=== PATIENT | female | born 1945 | race Hispanic/Latino ===

== ENCOUNTER 2017-03-16 04:26 | Inpatient (IN) | payer OTHER, MEDICARE ==
[~2017-03-16] VITALS: Ht 157.5 cm; Wt 64.0 kg
[~2017-03-16 04:26] MED LIST: ASPIR 8181 MG PO; ATORVASTATIN CA10 MG PO; FERROUS SULFAT325 M1 PO; FLAG500 PO; KEFLEX 250MG C250 MG PO; LANTUS100 U/ML INJ; LANTUS100 U/ML SC; LASIX20 MG PO; MELOXICAM7.5 M1; MIRALAX17 GM PO; NOVAPLUS ZOSYN1 PD1 IV; NOVOLOG100 U/ML SC; PERCOCET 325 MG1 TA2 PO; PRILOSEC 20MG C20 MG PO; SENOKOT NATURA8.6 MG PO; UNASYN 3000MG3000 MG IV
--- NOTE | 2017-03-16 09:44 | Operative Report ---
Operative/Inv Procedure Report Surgery Date: 03/16/17 Name of Procedure: 1 open incision and drainage deep to the deep fascia with exposure of the flexor tendon and tendon sheath multiple sites left foot 2 bone biopsy left cuboid 3 intraoperative administration of ankle block anesthesia 4 excisional debridement Pre-Operative Diagnosis: 1 open necrotic wound left foot 2 osteomyelitis left foot 3 diabetic peripheral neuropathy 4 chronic nonhealing ulceration left foot Post-Operative Diagnosis: The same Estimated Blood Loss: less than 50ml Surgeon/Account Development Associate: BRINDA RODRIGUEZ DPM Anesthesia: moderate sedation, block Operative/Procedure Note Note: After obtaining informed consent the patient was brought to the operating room and placed on the operating table in supine position. The patient isn't securely fastened to the operating table using safety belt. After administration of IV sedation, 10 mL of 0.5% Marcaine plain was infiltrated about the patient's left ankle. The left foot and ankle within scrubbed prepped and draped in usual aseptic manner. Attention directed to the lateral aspect of the left ankle, where a 4 cm x 6 cm full-thickness Rivero grade 3 ulceration was identified. A 15 blade was utilized sharply revised skin margins. Dissection was then carried down deep to the deep fascia with exposure of the flexor tendon and tendon sheath multiple sites, both proximally and distally. All necrotic nonviable infected tissue sharply evacuated from the wound bed. The dissection was then carried down to the periosteum overlying the lateral aspect of the cuboid this was incised reflected. An osteotome and mallet was utilized to resect the inferior and lateral margin of the exposed bone. Specimen was harvested for both microbiologic and pathologic inspection. Nipple was then irrigated with 3 L of normal sterile saline infused with 50,000 units of bacitracin. Following this, the foot was redraped dressed and the surgeon's top gloves were changed clean gloves. Any bleeding vessels identified were cauterized or ligated as encountered. Nipple was then packed with iodoform and 3-0 nylon retention sutures were placed foot was then dressed with 4 x 4's Kerlix and an Jignesh wrap. The patient was noted to tolerate both procedure and anesthesia well and the patient was transported from the operating room to recovery with vital signs stable.
[2017-03-16 11:00] VITALS: BP 122/62
--- NOTE | 2017-03-16 12:24 | Cons- Medical ---
YANA NICOLE 03/16/17 1222: General Information and HPI Consulting Request Date of Consult: 03/16/17 Requested By: BRINDA RODRIGUEZ DPM Reason for Consult: DM, other medical issues. 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 She is now status post open incision and drainage to the deep fascia of the flexor tendon at multiple sites of left foot with left cuboid bone biopsy and excisional debridement done earlier today morning 03/16/2017. Medicien was consulted for Mx of DM and other medical issues. Allergies/Medications Allergies: Coded Allergies: NO KNOWN ALLERGIES (10/01/15) Home Med List: Atorvastatin Calcium (Lipitor) 40 MG TABLET 1 TAB PO DAILY hypercholesterolemia (Reported) Ferrous Sulfate (Feosol) 325 MG (65 MG IRON) TABLET 1 TAB PO DAILY anemia ( Reported) Furosemide 20 MG TABLET 1 TAB PO DAILY HF (Reported) Furosemide (Lasix) 20 MG TABLET 1 TAB PO DAILY HEART Insulin Detemir (Levemir) 100 UNIT/ML VIAL 45 UNIT SC QPM DM (Reported) Meloxicam 7.5 MG TABLET PAIN (Reported) Current Medications: Current Medications Sig/Tamiko Start time Last Medication Dose Route Stop Time Status Admin Ampicillin Sodium/ 3,000 MG Q6 03/16 1200 AC Sulbactam Sodium IV 03/17 1159 Sodium Chloride 100 ML Aspirin 81 MG DAILY 03/17 1000 AC PO Atorvastatin Calcium 10 MG 1700 03/16 1700 AC PO Ferrous Sulfate 325 MG DAILY 03/17 1000 AC PO Furosemide 20 MG DAILY 03/17 1000 AC PO Heparin Sodium 5,000 UNIT Q8 03/17 0600 AC (Porcine) SC Insulin Aspart 0 TIDAC 03/16 1200 AC SC Insulin Detemir 30 UNITS QPM 03/16 2200 AC SC Oxycodone/ 1 TAB Q4P PRN 03/16 1130 AC Acetaminophen PO Review of Systems Review of Systems Constitutional: Denies: chills, diaphoresis, fever, malaise, weakness, unexplained weight loss. EENTM: Denies: blurred vision, double vision, visual changes. Cardiovascular: Denies: chest pain, edema, orthopena, palpitations. Respiratory: Denies: cough, hemoptysis, orthopnea, short of breath. GI: Denies: abdominal pain, bloating, constipation, diarrhea. Genitourinary: Reports: no symptoms. Musculoskeletal: Reports: joint pain, joint swelling. Skin: Reports: no symptoms. Neurological/Psychological: Reports: no symptoms. Hematologic/Endocrine: Reports: no symptoms. Immunologic/Allergic: Reports: no symptoms. All Other Systems: Reviewed and Negative Past History Medical History Neurological: NONE EENT: NONE Cardiovascular: hyperlipidemia Respiratory: NONE Gastrointestinal: NONE Hepatic: NONE Renal: NONE Musculoskeletal: NONE Psychiatric: NONE Endocrine: diabetes Blood Disorders: NONE Cancer(s): NONE RN CVOR/Reproductive: NONE Surgical History Surgical History: Amputations: right great toe, left 3rd toe Psychosocial History Who Do You Live With? Lives with family members Services at Home: Home Health Aide Primary Language: Ethiopian Functional Ability ADLs Independent: dressing, eating, toileting, bathing. Ambulation: cane IADLs Independent: shopping, housework, finances, food prep, telephone, transportation , medication admin. Exam & Diagnostic Data Last 24 Hrs of Vital Signs/I&O stable Physical Exam General Appearance: well developed/nourished, no apparent distress Head: atraumatic, normal appearance Eyes: Bilateral: PERRL, EOMI. Ears, Nose, Throat: normal pharynx Neck: normal inspection, supple, full range of motion Respiratory: normal breath sounds, chest non-tender Cardiovascular: regular rate/rhythm Peripheral Pulses: 2+ radial (R), 2+ radial (L) Gastrointestinal: normal bowel sounds, soft, non-tender Extremities: calf tenderness, dressing present around the left ankle. Neurologic/Psych: no motor/sensory deficits Last 24 Hrs of Labs/Barry: stable Assessment/Plan Assessment/Plan This is a 70-year-old Ethiopian-speaking female with history of insulin-dependent diabetes mellitus, stage II diastolic heart failure on Lasix 10mg at home, history of chronic osteomyelitis, peripheral vascular disease, rule nonhealing foot ulcer status post previous screening graft, with the way to out patient management with suspicion for osteomyelitis status post debridement and bone biopsy 03/16/2017. Problem list along with assessment and plan #1 diabetes mellitus type 2 mellitus * Patient is a known case of diabetes mellitus. * HbA1c 7.7 in 01/18/2015 * Fingerstick noted to be 184. * patient is on 45 units levemir at home, continue current 30 units while in hospital Qpm. * ct current sliding scale - 151-200 - 2 units, 201-254 - 4 units, 251-300 -6 units, 301-350 -8 units, 351-400 -10 units, more than 400 - 12 units and call M.D. * Consistent carbohydrate diet. #2 diastolic congestive heart failure. * NO evidence of edema/crackles. * Continue furosemide 20 mg at home dosage. #3 GERD * Continue home medication of PPI. #4 hyperlipidemia. * Continue atorvastatin 10 mg daily. # 5 chronic anemia. * Continue Feosol 325 mg by mouth daily. #6 suspected osteomyeltis s/p bone bx * ct iv unasyn pendign cultures. * ct to follow Cx * Pain mx. DVT prophylaxis all the time. Pain mx. Problem List: 1. Osteomyelitis 2. Diabetes 3. Anemia 4. Peripheral vascular disease in diabetes mellitus 5. Ulcer of toe of left foot 6. DVT prophylaxis 7. Full code status 8. Other acute osteomyelitis, left ankle and foot Copies To: BRINDA RODRIGUEZ DPM Consult Acknowledgment - Thank you for your consult request. MARK DOVER,[facility] 03/16/17 3114: Assessment/Plan Consult Acknowledgment - Thank you for your consult request. Attending MD Review Statement Attending Statement Attending MD Statement: examined this patient, discuss w/resident/PA/BOILERMAKER FITTER, agreed w/resident/PA/BOILERMAKER FITTER, reviewed EMR data (avail)
--- NOTE | 2017-03-16 13:52 | NUR ---
1100-PT ARRIVED TO FLOOR FROM PACU. REPORT REC'D FROM [employer] ASSOCIATE DIRECTOR FINANCIAL AID. PT HAD L FOOT I&D AND BONE BIOPSY. VSS UPON ARRIVING TO FLOOR. DRESSING TO L FOOT C,D,I. FOOT ELEVATED ON PILLOW. PT INCONTINENT UPON ARRIVING TO FLOOR. PT CLEANED AND BEDSIDE COMMODE PLACED. PT DENIES PAIN AT THIS TIME.
[2017-03-16] MEDS ORDERED: LIPITOR40 M1 PO (14:00)
[2017-03-16] MEDS ORDERED: FUROSEMIDE20 M1 PO (14:00)
[2017-03-16] MEDS ORDERED: FEOSOL325 MG PO (14:01)
[2017-03-16] MEDS ORDERED: LEVEMIR100 UNIT/1 SC (14:02)
[2017-03-16 22:18] VITALS: BP 110/70
--- NOTE | 2017-03-17 05:20 | NUR ---
NURSING NOTE: PATIENT REPORTED SHE "FEELS LIKE HER SUGAR IS LOW." MST CHECKED FSBS, PT <50. APPLE JUICE & CRACKERS GIVEN TO PATIENT AND MD TEJADA MADE AWARE; IV DEXTROSE GIVEN PER MD ORDERS. WILL CONTINUE TO MONITOR.
[2017-03-17 06:26] VITALS: BP 110/64
--- NOTE | 2017-03-17 09:44 | PN- Medicine Consult ---
See Addendum Assessment/Plan Assessment/Plan Assessment: This is a 70-year-old Uzbek-speaking female with history of insulin-dependent diabetes mellitus, stage II diastolic heart failure on Lasix 10mg at home, history of chronic osteomyelitis, peripheral vascular disease, rule nonhealing foot ulcer status post previous screening graft, with the way to out patient management with suspicion for osteomyelitis status post debridement and bone biopsy 03/16/2017. Plan: Problem list along with assessment and plan #1 diabetes mellitus type 2 mellitus * Patient is a known case of diabetes mellitus. * HbA1c 7.7 in 01/18/2015 * Fingerstick noted to be 184. * patient is on 45 units levemir at home, was continue 30 units while in hospital Qpm. * As per her body weight, her requirement of insulin as per 1.2 units per KG counts up to 24, it was noted that she was hypoglycemic early in the morning less than 50 therefore we will reduce the Levemir by 20% and will give her 24 units total in 2 divided doses 12 units in the a.m. and 12 units in the p.m. * ct current sliding scale - 151-200 - 2 units, 201-254 - 4 units, 251-300 -6 units, 301-350 -8 units, 351-400 -10 units, more than 400 - 12 units and call M.D. * Consistent carbohydrate diet. #2 diastolic congestive heart failure. * NO evidence of edema/crackles. * Continue furosemide 20 mg at home dosage. #3 GERD * Continue home medication of PPI. #4 hyperlipidemia. * Continue atorvastatin 10 mg daily. # 5 chronic anemia. * Continue Feosol 325 mg by mouth daily. #6 suspected osteomyeltis s/p bone bx * ct iv unasyn pendign cultures. * ct to follow Cx * Pain mx. DVT prophylaxis all the time. Pain mx. Problem List: 1. Osteomyelitis 2. Diabetes Subjective Subjective: I have seen and examined the patient today morning, she was resting comfortably on the bed, did not have any new problems pain with that than one hypoglycemic episode early in the morning. She does not have any nausea, vomiting any fever, her vitals are stable, she is status post a primary and and is continued on Unasyn. Review of Systems Constitutional: Reports: see HPI. Objective Last 24 Hrs of Vital Signs/I&O Vital Signs Date Time Temp Pulse Resp B/P B/P Pulse O2 O2 Flow FiO2 Mean Ox Delivery Rate 03/17 0626 97.8 74 20 110/64 93 Room Air 03/16 2218 98.7 82 20 110/70 92 05/ 1100 97.5 80 18 122/62 92 Room Air Intake & Output 03/17 1600 03/17 0800 03/17 0000 Intake Total 1060 400 Output Total Balance 1060 400 Intake, IV 340 Intake, Oral 720 400 Number 0 Bowel Movements Current Medications: Current Medications Sig/Tamiko Start time Last Medication Dose Route Stop Time Status Admin Ampicillin Sodium/ 3,000 MG Q6 03/16 1200 AC 03/17 Sulbactam Sodium IV 03/17 1159 0511 Sodium Chloride 100 ML Aspirin 81 MG DAILY 03/17 1000 AC PO Atorvastatin Calcium 10 MG 1700 / 1700 AC 03/16 PO 1723 Dextrose 25 GM ONCE ONE 03/17 0515 DC 03/17 IV 03/17 0516 0503 Ferrous Sulfate 325 MG DAILY 03/17 1000 AC PO Furosemide 20 MG DAILY 03/17 1000 AC PO Guaifenesin 10 ML Q6P PRN 03/16 1715 AC 05/ PO 1723 Heparin Sodium 5,000 UNIT Q8 03/17 0600 AC 03/17 (Porcine) SC 0512 Insulin Aspart 0 TIDAC 03/16 1200 AC 03/16 SC 1723 Insulin Detemir 30 UNITS QPM / 2200 AC 03/16 SC 2111 Oxycodone/ 1 TAB Q4P PRN 03/16 1130 AC Acetaminophen PO Patient Medication 1 ED .STK-MED ONE 03/16 1415 DC Teaching ED 03/16 1416 Results Last 24 Hrs Lab/Barry Results: ..
[2017-03-17 15:18] VITALS: BP 110/60
--- NOTE | 2017-03-17 17:26 | PN- Podiatry ---
Subjective Subjective: Patient seen at bedside and resting comfortably. No acute complaints. Patient afebrile. Objective Vital Signs and I&Os Vital Signs Date Time Temp Pulse Resp B/P B/P Pulse O2 O2 Flow FiO2 Mean Ox Delivery Rate 03/17 1518 97.6 86 20 110/60 91 03/17 0800 Room Air 03/17 06 97.8 74 20 110/64 93 Room Air 03/16 2218 98.7 82 20 110/70 92 Intake & Output 03/17 1600 03/17 0000 03/16 1600 03/16 0000 Intake Total 480 1060 400 730 Output Total 500 Balance 480 1060 400 230 Intake, IV 340 130 Intake, Oral 480 720 400 600 Number 0 0 Bowel Movements Output, Urine 500 Patient 142 lb Weight Physical Exam: Dressing left foot clean dry and intact. No strikethrough identified. No pain with deep palpation bilateral lower extremity's. Assessment/Plan Assessment/Plan Left foot osteomyelitis, status post I&D. Follow-up cultures. Patient to the OR for revision and closure. PICC line placement pending pathology results. Core Measures/Miscellaneous Venous Thromboembolism VTE Risk Factors: Age > 40, Immobility, paresis, Surgery VTE Contraindications: No Contraindications VTE Diagnosis: No Beta Gabriel Is Beta Gabriel a Home Med? No Antibiotics Is Patient on Antibiotics? Yes
[2017-03-17 22:14] VITALS: BP 144/78
[2017-03-18 07:17] VITALS: BP 106/50
--- NOTE | 2017-03-18 08:10 | PN- Medicine Consult ---
YANA NICOLE 03/18/17 0810: Assessment/Plan Assessment/Plan Assessment: This is a 70-year-old Citizen Of [place]-speaking female with history of insulin-dependent diabetes mellitus, stage II diastolic heart failure on Lasix 10mg at home, history of chronic osteomyelitis, peripheral vascular disease, rule nonhealing foot ulcer status post previous screening graft, with the way to out patient management with suspicion for osteomyelitis status post debridement and bone biopsy 03/16/2017 ot go for repeat OR revision today. Plan: Problem list along with assessment and plan #1 diabetes mellitus type 2 mellitus * Patient is a known case of diabetes mellitus. * HbA1c 7.7 in 01/18/2015 * Fingerstick noted to be 184. * Ct Levemir 24 units total in 2 divided doses 12 units in the a.m. and 12 units in the p.m. * ct current sliding scale - 151-200 - 2 units, 201-254 - 4 units, 251-300 -6 units, 301-350 -8 units, 351-400 -10 units, more than 400 - 12 units with added bedtime scale * Consistent carbohydrate diet. #2 Diastolic congestive heart failure. * NO evidence of edema/crackles. * Continue furosemide 20 mg at home dosage. #3 GERD * Continue home medication of PPI. #4 Hyperlipidemia. * Continue atorvastatin 10 mg daily. # 5 Chronic anemia. * Continue Feosol 325 mg by mouth daily. #6 Suspected osteomyeltis s/p bone bx * Prelim cultures show gram positive cocci, snesitivities pending * ct iv unasyn pendign cultures. * ct to follow Cx * Pain mx. DVT prophylaxis all the time. Pain mx. Problem List: 1. Diabetes 2. Osteomyelitis Subjective Subjective: seen and examiend the patient today tanya, patient doing fine, stable, no new complaints. Review of Systems Constitutional: Reports: see HPI. Objective Last 24 Hrs of Vital Signs/I&O Vital Signs Date Time Temp Pulse Resp B/P B/P Pulse O2 O2 Flow FiO2 Mean Ox Delivery Rate 03/18 0717 97.8 70 20 106/50 92 Room Air 03/17 2214 98.4 80 20 144/78 93 Room Air 03/17 1518 97.6 86 20 110/60 91 Intake & Output 03/18 1600 03/18 0800 03/18 0000 Intake Total 150 250 Output Total 400 Balance -250 250 Intake, IV 150 150 Intake, Oral 100 Output, Urine 400 Physical Exam General Appearance: well developed/nourished Head: atraumatic, normal appearance Neck: normal inspection, supple Cardiovascular: regular rate/rhythm Respiratory: normal breath sounds, chest non-tender, no respiratory distress Peripheral Pulses: 2+ radial (R), 2+ radial (L) Abdomen: normal bowel sounds, soft, non-tender Back: normal inspection Extremities: dressing, dry aroud left ankle Current Medications: Current Medications Sig/Tamiko Start time Last Medication Dose Route Stop Time Status Admin Ampicillin Sodium/ 3,000 MG Q6H / 2100 AC 03/18 Sulbactam Sodium IV 03/18 2059 1420 Sodium Chloride 100 ML Ampicillin Sodium/ 3,000 MG Q6 / 1230 DC / Sulbactam Sodium IV 03/18 1759 1447 Sodium Chloride 100 ML Aspirin 81 MG DAILY / 1000 AC 05/ PO 0814 Atorvastatin Calcium 10 MG 1700 / 1700 AC 05/03 PO 1737 Ferrous Sulfate 325 MG DAILY 03/17 1000 AC 05/04 PO 0814 Furosemide 20 MG DAILY 03/17 1000 AC 05/04 PO 0814 Guaifenesin 10 ML Q6P PRN 05/02 1715 AC 05/ PO 1336 Heparin Sodium 5,000 UNIT Q8 03/17 0600 AC 03/18 (Porcine) SC 1333 Insulin Aspart 0 TIDAC/HS / 1200 AC SC Insulin Aspart 0 TIDAC 05/ 1200 DC 05/03 SC 1304 Insulin Detemir 12 UNITS BID 03/17 1011 AC 03/18 SC 0814 Oxycodone/ 1 TAB Q4P PRN 03/16 1130 AC Acetaminophen PO Results Last 24 Hrs Lab/Barry Results: none ARPITA FLORES MD 03/19/17 1536: Attending MD Review Statement Attending Sign Off Attending Cosign Statement: I have: examined this patient, reviewed [facility] EMR data, discussd w/resident/PA/ TATTOO IDENTIFIER, agreed w/resident/PA/TATTOO IDENTIFIER.
--- NOTE | 2017-03-18 08:53 | PN- Podiatry ---
Subjective Subjective: patient at bedside with no new complaints. Patient denies nausea vomiting fever chills. Objective Vital Signs and I&Os Vital Signs Date Time Temp Pulse Resp B/P B/P Pulse O2 O2 Flow FiO2 Mean Ox Delivery Rate 03/18 717 97.8 70 20 106/50 92 Room Air 03/17 2214 98.4 80 20 144/78 93 Room Air 03/17 1518 97.6 86 20 110/60 91 Intake & Output 03/18 0803/18 0000 03/17 1600 03/17 0803/17 0000 Intake Total 150 251 316 4538 400 Output Total 400 Balance -250 503 298 1361 400 Intake, IV 150 150 340 Intake, Oral 100 480 720 400 Number 0 0 Bowel Movements Output, Urine 400 Physical Exam: Dressing left foot clean dry and intact. No pain with deep palpation bilateral lower extremity's. Bone culture negative so far. Assessment/Plan Assessment/Plan Nonhealing ulcer with left lower extremity cellulitis. Patient to the OR for revision and closure. Anticipate discharge tomorrow afternoon. Core Measures/Miscellaneous Venous Thromboembolism VTE Risk Factors: Age > 40, Immobility, paresis, Surgery VTE Contraindications: No Contraindications VTE Diagnosis: No Beta Gabriel Is Beta Gabriel a Home Med? No Antibiotics Is Patient on Antibiotics? Yes Attending MD Review Statement Attending Statement Attending MD Statement: examined this patient
[2017-03-18 14:29] VITALS: BP 100/58
[2017-03-18 22:00] VITALS: BP 120/70
[2017-03-19 06:35] VITALS: BP 100/60
--- NOTE | 2017-03-19 08:49 | PN- Medicine Consult ---
JANY NICOLEGURJIT 03/19/17 0825: Assessment/Plan Assessment/Plan Assessment: This is a 70-year-old Ivorian-speaking female with history of insulin-dependent diabetes mellitus, stage II diastolic heart failure on Lasix 10mg at home, history of chronic osteomyelitis, peripheral vascular disease, rule nonhealing foot ulcer status post previous screening graft, with suspicion for osteomyelitis status post debridement and bone biopsy 03/16/2017 ot go for repeat OR revision today. Plan: Problem list along with assessment and plan #1 diabetes mellitus type 2 mellitus * Patient is a known case of diabetes mellitus. * HbA1c 7.7 in 01/18/2015 * Patient is NPO for revision OR today. * Hold Levemir * Change novolog to novolin * Change FS to Q6 with novolin coverage. * Finish one bag of D5 * Once patient is restarted on diet, resume levemie, change FS to tidac/hs , continue consistent carbohydrate diet and CT Novolog SS - 151-200 - 2 units, 201 -254 - 4 units, 251-300 -6 units, 301-350 -8 units, 351-400 -10 units, more than 400 - 12 units with added bedtime scale #2 Diastolic congestive heart failure. * NO evidence of edema/crackles. * Continue furosemide 20 mg at home dosage. #3 GERD * Continue home medication of PPI. #4 Hyperlipidemia. * Continue atorvastatin 10 mg daily. # 5 Chronic anemia. * Continue Feosol 325 mg by mouth daily. #6 Suspected osteomyeltis s/p bone bx * Prelim cultures show gram positive cocci, snesitivities pending * ct iv unasyn pending cultures. * ct to follow Cx * Pain mx. DVT prophylaxis all the time. Pain mx. Problem List: 1. Diabetes 2. Osteomyelitis 3. Peripheral vascular disease in diabetes mellitus Subjective Subjective: npo for repeat ORtoday, couldnot have conversation as her daughter wasn't around and she doesnot speak ukrainian, but she didnot have any discomfort, pain.vitals have mostly been stable.FS noted to 188,166. Review of Systems Constitutional: Reports: see HPI. Objective Last 24 Hrs of Vital Signs/I&O Vital Signs Date Time Temp Pulse Resp B/P B/P Pulse O2 O2 Flow FiO2 Mean Ox Delivery Rate 03/19 0635 98.2 73 20 100/60 92 Room Air 05/04 2200 97.9 88 20 120/70 93 Room Air 05/04 1429 97.9 78 18 100/58 93 Intake & Output 05/05 1600 05/05 0800 05/05 0000 Intake Total 120 Output Total 500 Balance -380 Intake, Oral 120 Output, Urine 500 Physical Exam General Appearance: well developed/nourished, no apparent distress, alert, awake Head: atraumatic, normal appearance Cardiovascular: regular rate/rhythm Respiratory: normal breath sounds, chest non-tender Peripheral Pulses: 2+ radial (R), 2+ radial (L) Abdomen: normal bowel sounds, soft, non-tender Back: normal inspection Current Medications: Current Medications Sig/Tamiko Start time Last Medication Dose Route Stop Time Status Admin Ampicillin Sodium/ 3,000 MG Q6H / 2100 DC 03/18 Sulbactam Sodium IV 03/18 2059 1420 Sodium Chloride 100 ML Aspirin 81 MG DAILY 05/ 1000 AC 05/04 PO 0814 Atorvastatin Calcium 10 MG 1700 05/02 1700 AC 05/ PO 1735 Dextrose/Sodium 1,000 ML Q13H / 0600 AC 05/05 Chloride IV 0542 Ferrous Sulfate 325 MG DAILY 05/ 1000 AC 05/04 PO 0814 Furosemide 20 MG DAILY /03 1000 AC 05/ PO 0814 Guaifenesin 10 ML Q6P PRN 05/ 1715 AC 05/ PO 1336 Heparin Sodium 5,000 UNIT Q8 / 0600 AC 05/ (Porcine) SC 0541 Insulin Aspart 0 Q6 05/ 2359 DC SC Insulin Aspart 0 TIDAC/HS / 1200 DC 03/18 SC 1735 Insulin Detemir 12 UNITS BID 03/17 1011 DC 05/04 SC 0814 Insulin Human Regular 0 Q6 05/05 0052 AC 05/ SC 0542 Oxycodone/ 1 TAB Q4P PRN 02 1130 AC Acetaminophen PO Results Last 24 Hrs Lab/Barry Results: .. MARK DOVER,[facility] 03/19/17 1536: Attending MD Review Statement Attending Sign Off Attending Cosign Statement: I have: examined this patient, reviewed al EMR data, discussd w/resident/PA/ ENVIRONMENTAL AID, agreed w/resident/PA/ENVIRONMENTAL AID.
[2017-03-19 14:14] VITALS: BP 122/60
--- NOTE | 2017-03-19 18:54 | NUR ---
CALLED FROM [facility] AT THIS TIME ASKING FOR SONA TO BE BROUGHT DOWN TO OR TO COMMUNICATE WITH PT
--- NOTE | 2017-03-19 19:20 | NUR ---
PT TO OR AT 1850
--- NOTE | 2017-03-19 19:38 | Operative Report ---
Operative/Inv Procedure Report Surgery Date: 03/19/17 Name of Procedure: 1 open incision and drainage deep to the D fashion with exposure of the flexor tendon and tendon sheath multiple sites left foot 2 delayed primary closure of open surgical wound left foot 3 debridement of necrotic bone left foot 4 intraoperative administration of ankle block anesthesia 5 excisional debridement Pre-Operative Diagnosis: 1 open necrotic wound left foot 2 osteomyelitis left foot 3 diabetic peripheral neuropathy 4 peripheral arterial disease Post-Operative Diagnosis: The same Estimated Blood Loss: less than 50ml Surgeon/Nurse: BRINDA RODRIGUEZ DPM Anesthesia: moderate sedation, block Operative/Procedure Note Note: After obtaining informed consent the patient was brought to the operating room and placed on the operating table in the supine position. The patient isn't securely fastened to the operating table utilizing safety belt. After administration of IV sedation, 10 mL of 0.5% Marcaine plain was infiltrated about the patient's left ankle. The left foot and ankle within scrubbed prepped and draped in usual aseptic manner. Attention directed left foot, where a large full-thickness necrotic was identified. Revised skin margins. Dissection was then carried down deep to the D fashion with exposure of the flexor tendon and tendon sheath multiple sites, both proximally and distally. All necrotic nonviable infected tissue sharply evacuated wound bed. The central aspect of the wound was noted to have exposed bone and this was sharply debrided with an osteotome and rongeur. The open wound was then irrigated with 3 L of normal sterile saline infusion 50,000 units of bacitracin. Was redraped and the surgeon's top gloves were exchanged for clean gloves. Any bleeding vessels identified were cauterized or ligated as encountered. Next a dorsal lateral dorsal medial flap was developed with undermining, mobilization and advancement of the adjacent tissues. The flap was rotated centrally and secured with 3-0 Vicryl. The skin edges were then reapproximated with 3-0 nylon. The incision was dressed with Xeroform 4 x 4's Kerlix and an Jignesh wrap. The patient was noted to tolerate both procedure and anesthesia well and the patient was transported from the operating room to recovery with vital signs stable and fascia status intact to both the dorsal medial dorsal lateral flaps.
[2017-03-19 22:00] VITALS: BP 118/66
--- NOTE | 2017-03-19 22:02 | NUR ---
LATE ENTRY FOR 2029 PT ARRIVED TO FLOOR FROM PACU A/O DENIES PAIN. ON 2L FROM PACU- 96%, VSS, DRESSING TO LEFT FOOT CD+I, +CMS. WILL CONT TO MONITOR
[2017-03-20 06:34] VITALS: BP 112/60
[2017-03-20] MEDS ORDERED: AUGMENTIN 875-1 EACH PO (12:17)
[2017-03-20] MEDS ORDERED: PERCOCET 5-3251 EACH PO (12:20)
--- NOTE | 2017-03-20 12:27 | Surgical Discharge Summary ---
Visit Information Visit Dates Admission Date: 03/16/17 Discharge Date: 03/20/17 History of Present Illness Chief Complaint: Mallory is a 72-year-old diabetic with a chronic history nonhealing ulcer left foot. The patient failed a prolonged course of local intensive wound care, including allografts and strict offloading. He is yielded her any significant relief, prompting an admission for surgical debridement and IV antibiotics. Medical History Blood Transfusion Hx: Yes Neurological: NONE EENT: NONE Cardiovascular: CHF, hypertension, hyperlipidemia Respiratory: NONE Gastrointestinal: NONE Hepatic: NONE Renal: NONE Musculoskeletal: NONE Psychiatric: NONE Endocrine: diabetes Blood Disorders: NONE Cancer(s): NONE SAWSMITH/Reproductive: NONE History of MRSA: No History of VRE: No History of CDIFF: No Isolation History: Standard Influenza Vaccine: 08/15/14 Surgical History Pertinent Surgical History: Amputations: right great toe, left 3rd toe Psychosocial History Who Do You Live With? Patient/Self Services at Home: None What is Your Primary Language? [place] Citizen Review of Systems: Unremarkable except for that noted history of present illness Hospital Course Course Attending Physician: BRINDA RODRIGUEZ DPM Primary Care Physician: BANDAR DOVERVA [place] [facility] Course: Was admitted after initial debridement of her left foot for elevation and IV antibiotics status post ostectomy of her lateral left foot. Her bone culture was noted to grow a scant number of sensitive staph aureus. The histologic findings of her pathology specimen ultimately however noted to be negative for osteomyelitis. Allergies: Coded Allergies: NO KNOWN ALLERGIES (10/01/15) Disposition Summary Disposition Principal Diagnosis: Left lower extremity cellulitis Additional Diagnosis: Diabetic peripheral neuropathy and chronic nonhealing ulcerations Discharge Disposition: home or self care Discharge Instructions General Discharge Information Code Status: Full Code Patient's Diet: 2200 kcal ADA diet Patient's Activity: Strict nonweightbearing left lower extremity Follow-Up Instructions/Appts: Follow-up with Dr. Rodriguez within 1 week of discharge in the wound care center Medications at Discharge Discharge Medications: Continue taking these medications: Furosemide (Lasix) 20 MG TABLET 1 Tablet ORAL DAILY Days = 30 Comments: Last Taken: 10/08/15 Time: 9AM Meloxicam (Meloxicam) 7.5 MG TABLET DAILY Furosemide (Furosemide) 20 MG TABLET 1 Tablet ORAL DAILY Qty = 30 Atorvastatin Calcium (Lipitor) 40 MG TABLET 1 Tablet ORAL DAILY Qty = 30 Ferrous Sulfate (Feosol) 325 MG (65 MG IRON) TABLET 1 Tablet ORAL DAILY Insulin Detemir (Levemir) 100 UNIT/ML VIAL 45 Unit Inject into fatty tissue Every night Start taking the following new medications: Amoxicillin/Potassium Clav (Augmentin 875-125 Tablet) 875 MG-125 MG TABLET 1 Tablet ORAL TWICE DAILY Qty = 14 No Refills Oxycodone HCl/Acetaminophen (Percocet 5-325 MG Tablet) 5 MG-325 MG TABLET 1 Tablet ORAL EVERY 6 HOURS NEEDED as needed for PAIN SCALE 4-6 (MODERATE ) Qty = 30 No Refills Attending MD Review Statement Attending Statement Attending MD Statement: examined this patient
[2017-03-20 12:43] LABS: ABSOLUTE BASOPHIL COUNT 0.1 /CUMM (0.0-0.2); ABSOLUTE EOSINOPHIL COUNT 0.4 /CUMM (0.0-0.7); ABSOLUTE GRANULOCYTE CT 4.8 /CUMM (1.4-6.5); ABSOLUTE LYMPH COUNT 1.8 /CUMM (1.2-3.4); ABSOLUTE MONOCYTE COUNT 0.7 /CUMM (0.10-0.60); BASOPHIL % 0.7 % (0.0-2.0); EOSINOPHIL % 5.8 % (0-5); GRANULOCYTE % 61.9 % (42.2-75.2); MEAN CORPUSCULAR HGB 27.1 PG (27.0-31.0); MEAN CORPUSCULAR HGB CONC 32.9 G/DL (33.0-37.0); MEAN CORPUSCULAR VOLUME 82.6 FL (81.0-99.0); MEAN PLATELET VOLUME 8.6 FL (7.4-10.4); PLATELET COUNT 286 /CUMM (130-400); RBC DISTRIBUTION WIDTH 15.7 % (11.5-14.5); RED BLOOD CELL CT 4.23 /CUMM (4.20-5.40); WHITE BLOOD CELL COUNT 7.8 /CUMM (4.8-10.8)
== END 2017-03-20 15:15 | disposition home health service (06) | DRG 571 ==
LOC: STS 04:26 → PACUH 09:38 → 2NA 09:38 → ENRESERV 10:02 → 2NA 11:18 → ENPENDDIS 03-20 12:46 → 2NA 03-20 15:15
PROVIDERS: Internal Medicine; ADMIT Podiatrist Foot & Ankle Surgery
PROC: 0QBM0ZX Excision of Left Tarsal, Open Approach, Diagnostic (ICD-10-PCS; principal; 2017-03-16)
PROC: 0JBR0ZZ Excision of Left Foot Subcutaneous Tissue and Fascia, Open Approach (ICD-10-PCS; principal; 2017-03-16)
PROC: 0J9R0ZZ Drainage of Left Foot Subcutaneous Tissue and Fascia, Open Approach (ICD-10-PCS; principal; 2017-03-16)
PROC: 0J9R0ZZ Drainage of Left Foot Subcutaneous Tissue and Fascia, Open Approach (ICD-10-PCS; 2017-03-19)
PROC: 0JQR0ZZ Repair Left Foot Subcutaneous Tissue and Fascia, Open Approach (ICD-10-PCS; 2017-03-19)
PROC: 0QBM0ZZ Excision of Left Tarsal, Open Approach (ICD-10-PCS; 2017-03-19)
DX: L97.521 Non-pressure chronic ulcer of other part of left foot limited to breakdown of skin (principal); I50.32 Chronic diastolic (congestive) heart failure; E11.42 Type 2 diabetes mellitus with diabetic polyneuropathy; E78.5 Hyperlipidemia, unspecified; Z79.4 Long term (current) use of insulin; Z79.84 Long term (current) use of oral hypoglycemic drugs; I73.9 Peripheral vascular disease, unspecified; K21.9 Gastro-esophageal reflux disease without esophagitis; D64.9 Anemia, unspecified
CPT/HCPCS: 2NASP; 87070; 87075; 87184; 36415; 82436; 87147; 88307; 93005; 93010; J1644; J1815; J2001; J3490; J7042